=== PATIENT | female | born 1955 | race Two or more races ===

== ENCOUNTER 2024-12-09 16:38 | Emergency (ER) | payer MEDICARE, MEDICAID, SELFPAY ==
[2024-12-09 16:54] VITALS: BP 143/85; PULSE 82; RESP 16; TEMP 36.8; O2SAT 96; BMI 25.3
--- NOTE | 2024-12-09 17:08 | XR_ITS ---
Examination: Pelvic ultrasound, transabdominal, complete Technique: Transabdominal ultrasound of the pelvis performed using grayscale imaging Date and time of exam: December 09, 2024 1835 hrs. Indications: Left lower abdominal pain pelvic pain beginning 7 months ago with onset vaginal bleeding beginning 5 days ago Findings: Uterus 6.9 x 3.0 x 4.3 cm Small uterine body area of fibroid degeneration 2.1 x 2.2 x 2.2 cm Ovaries obscured by bowel gas Impression: Small uterine area of fibroid degeneration Endometrial stripe is not diagnostically visualized
--- NOTE | 2024-12-09 17:08 | PD.EDRME ---
Rapid Medical Screening Exam RME Arrival date/time: 12/09/24 16:38 69-year-old female presents to the emergency department complains of pelvic pain and vaginal spotting ongoing for months Chief Complaint: Abdominal Pain Vital signs: Vital Signs Temperature 98.3 F 12/09/24 16:54 Pulse Rate 82 12/09/24 16:54 Respiratory Rate 16 12/09/24 16:54 Blood Pressure 143/85 H 12/09/24 16:54 Pulse Oximetry (%) 96 12/09/24 16:54 Oxygen Delivery Method Room Air 12/09/24 16:54
[2024-12-09 17:48] LABS: Basophils # (Auto) 0.1 Thou/mm3 (0.0-0.2); Basophils % (Auto) 1 % (0-2.5); Eosinophils # (Auto) 0.3 Thou/mm3 (0.0-0.5); Eosinophils % (Auto) 3 % (0-10); Hematocrit 36.7 % (36.0-46.0); Hemoglobin 12.4 g/dL (12.0-16.0); Immature Granulocytes % (Auto) 0 % (0-0); Immature Granulocytes Auto 0.01 Thou/mm3 (0.00-0.00); Lymphocytes # (Auto) 2.7 Thou/mm3 (1.0-4.8); Lymphocytes % (Auto) 33 % (10-50); Mean Corpuscular HGB Conc 33.8 g/dl (31.0-37.0); Mean Corpuscular Hemoglobin 28.6 pg (25.0-35.0); Mean Corpuscular Volume 85 fL (80-100); Monocytes # (Auto) 0.7 Thou/mm3 (0.0-0.8); Monocytes % (Auto) 8 % (0-12); Neutrophils # (Auto) 4.4 Thou/mm3 (1.8-7.7); Neutrophils % (Auto) 54 % (37-80); Nucleated Red Blood Cell % 0 /100 WBC (0); Platelet Count 329 Thou/mm3 (140-440); RDW Standard Deviation 38.9 fL (36.4-46.3); Red Blood Count 4.34 Miln/mm3 (4.00-5.20); White Blood Count 8.1 Thou/mm3 (3.6-11.0)
[2024-12-09 18:12] LABS: Alanine Aminotransferase 24 U/L (10-49); Albumin, Serum 4.8 gm/dL (3.4-4.8); Albumin/Globulin Ratio 1.7 (1.2-2.2); Alkaline Phosphatase 147 U/L (46-116); Anion Gap 6 (7-16); Aspartate Amino Transferase 20 U/L (0-34); BUN/Creatinine Ratio 20 Ratio (12-20); Bilirubin,Total 0.4 mg/dL (0.3-1.2); Blood Urea Nitrogen 20 mg/dL (9-23); Calcium 10.2 mg/dL (8.3-10.6); Calcium (Corrected) 10.2 mg/dL (8.5-10.1); Carbon Dioxide 28.9 mMol/L (20.0-31.0); Chloride 103 mMol/L (98-107); Estimated Creatinine Clearance 49.5 mL/min (>60); Globulin 2.9 gm/dL (2.3-3.5); Glucose 138 mg/dL (74-106); Lipase 50 U/L (12-53); Osmolality,Calculated 280 (275-295); Sodium 138 mMol/L (136-145); Total Protein 7.7 gm/dL (5.7-8.2); eGFR > 60 See Note
[2024-12-09 18:54] LABS: Collection Type, Urine Clean Catch
[2024-12-09 19:12] LABS: Amorphous Crystals,Urine Present (Absent); Bilirubin,Urine Negative (Negative); Blood,Urine Negative (Negative); Clarity,Urine Turbid (Clear/Hazy); Color,Urine Yellow (Lt Yel-Yel); Glucose, Urine Negative (Negative); Ketones,Urine Negative (Negative); Leukocyte Esterase,Urine Positive (Negative); Nitrite,Urine Negative (Negative); Protein,Urine Negative (Neg - Trace); RBC,Urine 6 /hpf (0-3); Specific Gravity,Urine 1.019 (1.001-1.035); Squamous Epithelial Cell,Urine 4 /hpf (0-5); Urobilinogen,Urine Negative mg/dL (0.0-1.0); WBC,Urine 15 /hpf (0-5)
[2024-12-09 19:13] LABS: Culture Indicated,Urine Yes
--- NOTE | 2024-12-09 20:09 | PD.EDABDPN ---
ED Abdominal Pain RME/HPI General Chief Complaint: Abdominal Pain Stated complaint: SEVERE LLQ PAIN X 1WK Time seen by provider: 12/09/24 17:23 Arrival date/time: 12/09/24 16:38 RME / HPI RME / HPI narrative: 69-year-old female presents to the emergency department complains of pelvic pain and vaginal spotting ongoing for months. Patient symptoms severity is mild. Patient was seen by [facility], pending hysterectomy. Denies any other complaints or medications taken prior to arrival. Related Data Previous Rx's ?Medication ?Instructions ?Recorded omeprazole 20 mg capsule,delayed 20 mg PO QDAY ##30 07/22/16 release cephalexin 500 mg capsule 500 mg PO TID 7 days #21 caps 12/09/24 ibuprofen 600 mg tablet 600 mg PO TID PRN pain #30 tabs 12/09/24 Allergies Allergy/AdvReac Type Severity Reaction Status Date / Time NKA* Allergy Uncoded 12/09/24 16:42 Review of Systems Review of Systems Narrative Review of Systems: Review of system reviewed and within normal limits except mentioned in HPI ED Exam Narrative Physical exam: VITAL SIGNS: Reviewed. GENERAL APPEARANCE: Alert and interactive, follows commands, no acute distress, HEAD AND FACE: Non-traumatic. ENT: PERRL, pink conjunctivitis, eyelid no trauma, Mucous membrane moist. NECK: Supple, nontender, no nuchal rigidity. CHEST: No tenderness, no crepitus, no paradoxical movement, no retractions. LUNGS: Clear, well ventilated, symmetric, no rales, no wheezing, no ronchi, no stridor, good breath sounds bilaterally. HEART: Regular rate, regular rhythm, no murmur, no gallops. ABDOMEN: Soft, positive bowel sounds, nondistended, no guarding, nontender, no rebound, no masses, RECTAL: Deferred. GENITAL: Deferred. NEUROLOGICAL: Gross motor function intact sensory function intact, Appropriate for age. MUSCULOSKELETAL: low back nontender, full range of motion. EXTREMITIES: Nontender, full range of motion. SKIN: Color pink, dry, no rash, no lacerations, no abrasions, no contusions. LYMPHATICS: Deferred. Course Quality Measures none Orders Category Date Time Status US pelvic complete Stat Exams 12/09/24 17:08 Completed CBC Stat Lab 12/09/24 17:19 Completed Comprehensive Metabolic Panel Stat Lab 12/09/24 17:19 Completed Lipase Stat Lab 12/09/24 17:19 Completed UA, C/S IF [Urinalysis, C/S if Indicated] Stat Lab 12/09/24 18:42 Completed Urine Culture Stat Lab 12/09/24 18:42 Received Ibuprofen Tab [Motrin Tab] Med 12/09/24 20:05 Discontinued 600 mg PO X1 ONE cephALEXin [Keflex] Med 12/09/24 19:58 Discontinued 500 mg PO X1 ONE Vital Signs Vital signs: Vital Signs Temperature 98.3 F 12/09/24 16:54 Pulse Rate 82 12/09/24 16:54 Respiratory Rate 16 12/09/24 16:54 Blood Pressure 143/85 H 12/09/24 16:54 Pulse Oximetry (%) 96 12/09/24 16:54 Oxygen Delivery Method Room Air 12/09/24 16:54 Abdominal Pain MDM MDM Narrative MDM Narrative:: 69-year-old female presents to the emergency department complains of pelvic pain and vaginal spotting ongoing for months. Patient symptoms severity is mild. Patient was seen by [facility], pending hysterectomy. Denies any other complaints or medications taken prior to arrival. Came back with UTI, otherwise unremarkable. Ultrasound of the pelvis showed Small uterine area of fibroid degeneration Endometrial stripe is not diagnostically visualized Patient received Keflex and Motrin in the emergency room. Patient was advised to follow-up with [facility] in few days for definitive management of her uterine problem. Patient scheduled for hysterectomy. Patient data External records reviewed:: None Clinical information provided by:: patient and family Social determinants that could affect healthcare access:: none Patient has the following chronic illnesses:: None How is presenting disease/condition affected by chronic disease/condition?: no chronic disease Evaluation data The following diagnostics were reviewed and interpreted by me:: lab results and radiology exam(s) Lab and/or radiology exams considered but not ordered:: None Interpretation Summary: Came back with UTI, otherwise unremarkable. Ultrasound of the pelvis showed Small uterine area of fibroid degeneration Endometrial stripe is not diagnostically visualized Medications / Prescriptions Medications or Prescriptions considered but not ordered:: None Medication administrations:: Medication Administration History Discontinued Medications Cephalexin HCl (Cephalexin 250 Mg Capsule) 500 mg PO X1 ONE Stop: 12/09/24 19:59 Ibuprofen (Ibuprofen Tab 600 Mg Tablet) 600 mg PO X1 ONE Stop: 12/09/24 20:06 Motrin and Keflex Consultations Consultation(s) initiated? (list below): No Diagnosis Differential diagnosis abdominal pain: abdominal pain and other (Pelvic pain, UTI) Most likely diagnosis given after review of the tests above:: Pelvic pain, UTI Admission Indicated Admission indicated?: not indicated Explain why admission is indicated or not indicated:: None Admission Request Was there a request for admission?: No Admission Attestation Admission request attestation: Stable for discharge Disposition Plan Disposition Plan: Discharge Discharge Attestation Discharge Attestation: The patient and all family members were given an opportunity to ask questions and understood the discharge instructions. Discharge instructions specifically effects, indications for sooner follow up or return to the emergency department, and the expected course of current diagnosis. Patient condition: Stable Discharge Plan Plan Patient Disposition: HOME (Self Care) Disposition Comment: Stable Prescriptions/Referrals Prescriptions/Med Rec: New cephalexin 500 mg capsule 500 mg PO TID 7 Days Qty: 21 0RF ibuprofen 600 mg tablet 600 mg PO TID PRN (Reason: pain) Qty: 30 0RF No Action omeprazole 20 MG capsule,delayed release(DR/EC) 20 mg PO QDAY Qty: 30 0RF Referrals: Naif Higgins MD [Primary Care Provider] - In 1 week Problem List Clinical Impression: Pain pelvic, UTI (urinary tract infection), Fibroid, uterine Patient/Caregiver Discharge Instructions Discharge Activity: activity as tolerated Education Materials: ED Uterine Fibroids Additional Instructions: Thank you for the opportunity for serving you today. You are stable for discharged . You are advised to: Follow-up with your [facility] in 1 to 2 days Return to ED for worsening of symptoms Increase oral fluids Take medication as prescribed Print Language: Maltese Stand Alone Forms: Jane Award Info., Patient Portal Info Letter STEVENSON/ARTURO Supervising Physician STEVENSON/ARTURO Supervising Physician: MD Alejandro
[2024-12-09] MEDS: cephALEXin 250 MG CAPSULE 500 MG PO (20:12)
[2024-12-09] MEDS: IBUPROFEN TAB 600 MG TABLET PO (20:12)
[2024-12-09 20:14] VITALS: BP 135/67; PULSE 78; RESP 19; TEMP 36.7; O2SAT 99
== END 2024-12-09 20:16 | disposition home or self-care (01) ==
PROVIDERS: Nurse Practitioner Primary Care; Emergency Provider Emergency Medicine; PCP Family Medicine
DX: N39.0 Urinary tract infection, site not specified (principal); D25.9 Leiomyoma of uterus, unspecified
CPT/HCPCS: 36415; 76856; 80053; 81001; 83690; 85025; 87086; 99284; A9270

== ENCOUNTER 2025-05-11 15:15 | Observation (INO) | payer MEDICARE, MEDICAID, SELFPAY ==
[2025-05-05 09:17] VITALS: BMI 24.4
[2025-05-05 09:51] LABS: Basophils # (Auto) 0.1 Thou/mm3 (0.0-0.2); Basophils % (Auto) 1 % (0-2.5); Eosinophils # (Auto) 0.2 Thou/mm3 (0.0-0.5); Eosinophils % (Auto) 3 % (0-10); Hematocrit 38.8 % (36.0-46.0); Hemoglobin 13.1 g/dL (12.0-16.0); Immature Granulocytes % (Auto) 0 % (0-0); Immature Granulocytes Auto 0.01 Thou/mm3 (0.00-0.00); Lymphocytes % (Auto) 34 % (10-50); Mean Corpuscular HGB Conc 33.8 g/dl (31.0-37.0); Mean Corpuscular Hemoglobin 29.1 pg (25.0-35.0); Mean Corpuscular Volume 86 fL (80-100); Monocytes # (Auto) 0.4 Thou/mm3 (0.0-0.8); Monocytes % (Auto) 7 % (0-12); Neutrophils # (Auto) 3.1 Thou/mm3 (1.8-7.7); Neutrophils % (Auto) 55 % (37-80); Nucleated Red Blood Cell % 0 /100 WBC (0); Platelet Count 312 Thou/mm3 (140-440); RDW Standard Deviation 38.8 fL (36.4-46.3); White Blood Count 5.7 Thou/mm3 (3.6-11.0)
[2025-05-05 10:10] LABS: Alanine Aminotransferase 23 U/L (10-49); Albumin, Serum 4.9 gm/dL (3.4-4.8); Albumin/Globulin Ratio 1.9 (1.2-2.2); Alkaline Phosphatase 111 U/L (46-116); Anion Gap 10 (7-16); Aspartate Amino Transferase 24 U/L (0-34); BUN/Creatinine Ratio 19 Ratio (12-20); Bilirubin,Total 0.6 mg/dL (0.3-1.2); Blood Urea Nitrogen 19 mg/dL (9-23); Calcium 9.4 mg/dL (8.3-10.6); Calcium (Corrected) 9.4 mg/dL (8.5-10.1); Carbon Dioxide 26.8 mMol/L (20.0-31.0); Chloride 105 mMol/L (98-107); Estimated Creatinine Clearance 44.5 mL/min (>60); Globulin 2.6 gm/dL (2.3-3.5); Glucose 122 mg/dL (74-106); Osmolality,Calculated 286 (275-295); Sodium 142 mMol/L (136-145); Total Protein 7.5 gm/dL (5.7-8.2); eGFR > 60 See Note
[2025-05-05 10:48] LABS: Hepatitis A Antibody IgM Non Reactive (Non React); Hepatitis B Core Antibody IgM Non Reactive (Non React); Hepatitis B Surface Antigen Non Reactive (Non React); Hepatitis C Antibody Non Reactive (Non React)
[2025-05-05 15:10] LABS: HIV (1&2) Antibody Rapid Non-Reactive
--- NOTE | 2025-05-10 17:35 | PD.GYNHP ---
Documentation for date of: 05/10/25 DIRECTOR OF THERAPY SERVICES - HPI History of Present Illness History of present illness: Ms. KRAUSE is a 70 year old female p3, all previous VD , here for a vaginal hysterectomy Pt has a incomplete uterovaginal prolapse , which is bothersome to her life and wants a surgery for adalberto same Pt has also been having spotting?, EMB was done which showed atrophic endometrium , no hyperplasia cancer Meds Home Medications and Allergies Home Medications ?Medication ?Instructions ?Recorded ?Confirmed ?Type lisinopril 5 mg tablet 5 mg PO QDAY 05/05/25 05/05/25 History metformin 500 mg tablet 500 mg PO BID 05/05/25 05/05/25 History simvastatin 20 mg tablet 20 mg PO QDAY 05/05/25 05/05/25 History Allergies Allergy/AdvReac Type Severity Reaction Status Date / Time No Known Allergies Allergy Verified 05/05/25 09:15 Exam - DIRECTOR OF THERAPY SERVICES Constitutional Constitutional: no acute distress Routine HEENT Exam Head: Present normocephalic and atraumatic Eye: Present EOMI and PERRL ENT: Present mucous membranes moist Routine Neck Exam Neck: Present supple and trachea midline Routine Respiratory Exam Respiratory: Present chest non-tender, lungs clear, normal breath sounds and no resp distress Routine Cardiovascular Exam Cardiovascular: Present RRR Routine Abdominal Exam Abdominal: Present soft and normoactive bowel sounds Routine Extremities Exam Extremities: Present full ROM Routine Skin Exam Skin: Present intact and dry Routine Neurological Exam Neurological: Present alert, oriented X3 and CN II-XII intact Routine Psychiatric Exam Psychiatric: Present normal affect and normal thought process DIRECTOR OF THERAPY SERVICES - Results Labs 05/05/25 09:32 05/05/25 09:32 Impressions Impression: US done in [facility] : Uterus 6.9 x 3.0 x 4.3 cm, Small uterine body area of fibroid degeneration 2.1 x 2.2 x 2.2 cm Ovaries obscured by bowel gas Assessment and Plan Additional Assessment & Plan Additional Plan: 70 y/o p3 , here for vaginal hysterectomy , possible salpingoophorectomy , AP repair patient understands that there is risk of infection , bleeding and bladder or colon perforation. patient was given option of pessary , which she declined antibiotic prophylaxis DVT prophylaxis Quality Measures Quality Measures VTE prophylaxis Advance care planning discussed with:: patient
[2025-05-11] VITALS (25 sets, daily range): BP systolic 115–148; BP diastolic 55–85; PULSE 54–98; RESP 12–98; TEMP 36.1–36.9; O2SAT 95–100; BMI 23.3
--- NOTE | 2025-05-11 10:02 | SUR.PHASEI ---
1002: Pt. arrived with oral airway in place, vitals stable, breathing unlabored, no signs of distress, peripad in place no active bleed noted, christopher catheter in place draining clear urine, report received from MD Gotti and Lianna COLORADO.
--- NOTE | 2025-05-11 10:25 | PD.GYNPROC ---
Operative Note - UNIVERSITY COUNSELOR Procedure Date of procedure: 05/11/25 Procedure Performed: Total vaginal hysterectomy Bui culdoplasty Anterior colporrhaphy Cystoscopy, diagnostic Indication: Postmenopausal bleeding Stage III pelvic organ prolapse Pre-Op diagnosis: Same Procedure description: The patient was seen prior to surgery. The potential benefits and risks of the procedure, the likelihood of success, and the problems related to recuperation have been discussed with patient who agrees to proceed. The possible results of nontreatment and significant alternatives to the proposed procedure have also been explained, along with the risks and benefits of the alternatives. Risks and benefits of chosen anesthetic/sedation and possible use of blood/blood products were discussed.The patient was identified as Jill Moess and the procedure verified. A time out was held reviewing the patient identifiers, procedure planned and allergies. A weighted speculum was placed in the posterior vaginal wall and the right-angle retractor used to visualize the cervix. The cervix was grasped across the anterior lip with a single-toothed tenaculum and circumferentially infiltrated with Pitressin at this time, This following the identification of the lumbosacral ligaments that were injected with marcaine with epinephrine. The cervix was circumferentially excised with the scalpel. The vaginal mucosa was dissected superiorly with sharp dissection. A posterior colpotomy was made through the cul-de-sac space. We then returned to the anterior peritoneal reflection which was identified, and it was entered with Metzenbaum scissors. The posterior peritoneum was identified in similar fashion and Metzenbaum scissors were used to enter the cul-de-sac. At this time, a long weighted speculum was placed, advanced posteriorly into the cul-de-sac. At this time, the left and right uterosacral ligaments were again identified.? Two posterior loredo were made with Vicryl-0 that was placed on the posterior vaginal mucosa and the posterior peritoneum to maintain the posterior cuff edges.? The enseal device was then used in a serial fashion up through the cardinal ligaments bilaterally. Finally, the uterine arteries were cross-clamped, cut, and ligated. given the size of adalberto uterus it was flipped and wedge resection starting from adalberto fundus to reduce adalberto size of uterus, The left and right tubes were then cross-clamped and ligated with enseal The uterus was excised and submitted for pathologic evaluation. The utero-ovarian pedicles were clamped, cut and tied off using Endoloop suture.Ovarian tissue coiuld not be identified inspite of rigorous exploration , and decision made to leave adalberto ovaries. Then after ensuring hemostasis of the vaginal cuff . Longitudinal incision extending from the anterior vaginal cuff 3 cm cephalad towards the urethra was made on the vaginal mucosa careful dissection done underneath 2 separate the vesicovaginal fascia by using sharp and blunt dissection. But her sutures placed to approximate vesicovaginal fascia excess vaginal mucosa was trimmed and mucosa was hemostatically repaired. A modified Bui?s culdoplasty was then performed using a 0-Vicryl stitch, incorporating the bilateral uterosacrals. A second suture was used to form a figure-of-8 incorporating both uterosacrals and the lateral thirds of the posterior vaginal cuff. The residual vaginal cuff was then closed with 0-Vicryl with a running stitch. A section of fibrillar hemostatic agent was inserted prior to complete closure of the vaginal cuff. At this time, instruments were removed from the patient's vagina.? Hemostasis was noted to be achieved. diagnostic cystoscopy was done and confirmed no injury to adalberto bladder and b/l ureteric jets Estimated blood loss (ml): 10 Surgical staff Operation Date: 05/11/25 07:45 Case Staff Anesthesiologist: Dandy Gotti RN First Assistant: Olimpia Quinones Diagnosis Problem List Completed Was Problem List Reviewed/Reconciled?: Yes
[2025-05-11] MEDS: Morphine Sulfate PF 1 MG/ML PCA VIAL 30 ML 30 MG IV (10:50)
--- NOTE | 2025-05-11 12:45 | SUR.PHASEII ---
1245: Report given to Mesha COLORADO to resume care of pt. Pt. laying in bed sleeping, family at bedside, peripad in place, vitals stable, breathing unlabored.
--- NOTE | 2025-05-11 12:46 | SUR.PHASEII ---
Received report on pt. s/p surgery from Katina COLORADO. Pt. is AAOx3, VSS, no c/o pain or nausea at this time, assessed hermelinda-area and hermelinda-pad for bleeding, no active bleeding noted. Pt. has GROUND CREWMAN in hand and educated on use. Pt.'s at bedside. Pt. is tolerating ice chips.
--- NOTE | 2025-05-11 13:11 | SUR.PHASEII ---
1311: Report recieved from Mesha COLORADO. No changes to the pt. Pt. vitals stable, breathing unlabored, no complaint of pain or nausea.
[2025-05-11] MEDS: RINGERS LACTATED 1000 ML 1,000 ML 125 ML IV ×2 (13:20→23:49)
[2025-05-11] MEDS: metroNIDAZOLE/NS 500 MG IVPB 500 MG/100 ML BAG 200 MG IV ×2 (14:46→21:03)
--- NOTE | 2025-05-11 15:10 | SUR.PHASEII ---
1510: Pt. AAOx4, vitals stable, breathing unlabored, no complaint of pain or nausea, peripad in place with scant amount of blood, christopher catheter in place draining clear yellow urine, pt. tolerated bites of jello and sips of water well, gave report to Lewis [place]ORADO prior to transfer to room, family made aware of transfer to room. Pt. transferred with all personal belongings.
--- NOTE | 2025-05-11 15:15 | PC.NURSE ---
resource management specialist hotline used for admission questions JUAN RAMON WHITAKER3
[2025-05-11] MEDS: ceFAZolin/D5W 2 GM IV 2 GM/100 ML BAG IV ×2 (16:58→22:02)
--- NOTE | 2025-05-11 18:28 | PC.NURSE ---
upon discharge notify pt. ishmael @ [phone] if spouse does not answer call daughter LYN @ [phone]
[2025-05-11] MEDS: DOCUSATE SOD 100 MG CAPSULE PO (21:02)
[2025-05-12] VITALS (8 sets, daily range): BP systolic 108–129; BP diastolic 55–68; PULSE 62–82; RESP 16–18; TEMP 36.1–36.2; O2SAT 94–98
[2025-05-12] MEDS: metroNIDAZOLE/NS 500 MG IVPB 500 MG/100 ML BAG 200 MG IV (05:28)
[2025-05-12] MEDS: ceFAZolin/D5W 2 GM IV 2 GM/100 ML BAG IV (05:28)
[2025-05-12 06:12] LABS: Basophils % (Auto) 0 % (0-2.5); Eosinophils # (Auto) 0.1 Thou/mm3 (0.0-0.5); Eosinophils % (Auto) 0 % (0-10); Hematocrit 33.7 % (36.0-46.0); Hemoglobin 11.3 g/dL (12.0-16.0); Immature Granulocytes % (Auto) 0 % (0-0); Immature Granulocytes Auto 0.06 Thou/mm3 (0.00-0.00); Lymphocytes # (Auto) 3.2 Thou/mm3 (1.0-4.8); Lymphocytes % (Auto) 24 % (10-50); Mean Corpuscular HGB Conc 33.5 g/dl (31.0-37.0); Mean Corpuscular Hemoglobin 28.9 pg (25.0-35.0); Mean Corpuscular Volume 86 fL (80-100); Monocytes # (Auto) 0.7 Thou/mm3 (0.0-0.8); Monocytes % (Auto) 5 % (0-12); Neutrophils # (Auto) 9.5 Thou/mm3 (1.8-7.7); Neutrophils % (Auto) 70 % (37-80); Nucleated Red Blood Cell % 0 /100 WBC (0); Platelet Count 247 Thou/mm3 (140-440); RDW Standard Deviation 39.7 fL (36.4-46.3); Red Blood Count 3.91 Miln/mm3 (4.00-5.20); White Blood Count 13.6 Thou/mm3 (3.6-11.0)
[2025-05-12] MEDS: Lisinopril 2.5 MG TABLET 5 MG PO (08:16)
--- NOTE | 2025-05-12 11:58 | PC.SS ---
SS met with patient regarding his d/c plan. Pt is alert/oriented. Pt was admitted for VAG HYS [id number]. Pt confirmed demographic and contact information is correct on facesheet. Pt resides with . Pt ambulates independently without assistance or DME. Pt is ok with all ADLs. Patient?s pharmacy of choice is [facility] [address]. Pt named her medical decision maker if she is unable. SS provided verbal d/c options for home or SNF. Patient?s choice is to return home upon d/c. Pt states she is diabetic, has glucometer, and test strisp. Pt states she takes oral medication for her diabetes. Pt followed up with PCP in May. will provide transportation home. D/C plan: Return home Next of Kin: Josué Bernal, , phone# [phone] PCP: [facility] Address: Correct on facesheet
--- NOTE | 2025-05-20 12:05 | PD.GYNDS ---
Planned Discharge Date 05/20/25 DS: Providers Provider Date of admission: 05/11/25 15:15 Primary care physician: Naif Higgins MD Admitting Provider: Melvina Sánchez MD Attending Provider on Admission: Melvina Sánchez MD Attending Provider on DC: Melvina Sánchez MD Discharging Provider: Melvina Sánchez MD DS: Diagnosis Problem List Completed Was Problem List Reviewed/Reconciled?: Yes Hospital Course Hospital Course Hospital course: Ms. KRAUSE is a 70 year old female p3, all previous VD , had a vaginal hysterectomy yesterday. Patient has been doing well ambulating, passing gas, voiding spontaneously, tolerating oral diet without nausea vomiting. Patient was counseled thoroughly regarding postop restrictions including abstinence, avoiding baths, avoiding excessive heavy weight lifting, vigorous physical activity and avoiding constipation .stable to discharge home Status at Discharge Cognitive/behavioral status at discharge: Stable Time Spent with Patient Time attestation: Total time spent providing and/or coordinating discharge services: Time spent: Less than 30 minutes Quality: VTE Deep Vein Thrombosis/Pulmonary Embolism Present on Admission: No Exam - REED REPAIRER Vital Signs Temp Pulse Resp BP Pulse Ox O2 Del Method O2 Flow Rate 97.1 F 78 16 129/61 98 Room Air 2 05/12/25 16:00 05/12/25 16:00 05/12/25 16:00 05/12/25 16:00 05/12/25 16:00 05/12/25 16:00 05/11/25 14:00 Constitutional Constitutional: no acute distress Routine HEENT Exam Head: Present normocephalic and atraumatic Eye: Present EOMI and PERRL ENT: Present mucous membranes moist Routine Neck Exam Neck: Present supple and trachea midline Routine Respiratory Exam Respiratory: Present chest non-tender, lungs clear, normal breath sounds and no resp distress Routine Cardiovascular Exam Cardiovascular: Present RRR Routine Abdominal Exam Abdominal: Present soft and normoactive bowel sounds Routine Extremities Exam Extremities: Present full ROM Routine Skin Exam Skin: Present intact and dry Routine Neurological Exam Neurological: Present alert, oriented X3 and CN II-XII intact Routine Psychiatric Exam Psychiatric: Present normal affect and normal thought process Discharge Plan Plan Patient Disposition: HOME (Self Care) Prescriptions/Referrals Prescriptions/Med Rec: New acetaminophen-codeine 300-15 mg tablet 1 tab PO Q12H PRN (Reason: pain) Qty: 10 0RF metronidazole 500 mg tablet 500 mg PO BID Qty: 14 0RF doxycycline monohydrate 100 mg tablet 100 mg PO BID Qty: 14 0RF docusate sodium [Colace] 100 mg capsule 100 mg PO BID Qty: 20 0RF No Action lisinopril 5 mg tablet 5 mg PO QDAY metformin 500 mg tablet 500 mg PO BID simvastatin 20 mg tablet 20 mg PO QDAY Referrals: Naif Higgins MD [Primary Care Provider] - Patient/Caregiver Discharge Instructions Education Materials: Abdominal Pain Print Language: Yoruba Activity Restrictions/Additional Instructions: Percy madeline con kurt Grider en la siguente semana Stand Alone Forms: Jane Award Info., Patient Portal Info Letter, Work/Release Restrictions Discharge Order Discharge Orders: Discharge (Routine); Ordered 05/12/25 Ordered By: Melvina Sánchez
== END 2025-05-12 17:14 | disposition home or self-care (01) ==
LOC: S3SX 15:22
PROVIDERS: Admitting Provider Student in an Organized Health Care Education/Training Program; PCP Family Medicine; Referring Provider Student in an Organized Health Care Education/Training Program; Visit Provider Student in an Organized Health Care Education/Training Program
PROC: (CPT 58260; principal; 2025-05-11 07:30)
DX: N81.3 Complete uterovaginal prolapse (principal); D25.9 Leiomyoma of uterus, unspecified; Z01.810 Encounter for preprocedural cardiovascular examination
CPT/HCPCS: 58260; 57260; 36415; 80053; 80074; 85025; 86703; 86850; 86900; 86901; 93005; 96361; 96365; 96366; A4217; A4649; G0378; J0131; J0689; J0690; J1100; J2270; J2371; J2405; J2598; J2704; J3010; J3490; J7050; J7120; A9270; J1836